=== PATIENT | female | born 1960 | race Caucasian/White ===

== ENCOUNTER 2017-10-20 21:59 | Emergency (ER) | payer OTHER ==
[~2017-10-20] VITALS: Ht 162.6 cm; Wt 90.9 kg
[2017-10-20 23:38] VITALS: BP 136/96
== END 2017-10-20 23:35 | disposition home or self-care (01) ==
LOC: EME 21:59
DX: S80.12XA Contusion of left lower leg, initial encounter (principal); W10.1XXA Fall (on)(from) sidewalk curb, initial encounter; J45.909 Unspecified asthma, uncomplicated; Z88.5 Allergy status to narcotic agent; Z88.1 Allergy status to other antibiotic agents
CPT/HCPCS: 73590; 99281; 99284